=== PATIENT | female | born 2005 | race Two or more races ===

== ENCOUNTER 2024-02-23 13:42 | Emergency (ER) | payer MEDICAID, SELFPAY ==
[2024-02-23 13:46] VITALS: BP 137/89; PULSE 82; RESP 16; TEMP 36.7; O2SAT 97
--- NOTE | 2024-02-23 14:11 | ED.GENADUL_ITS ---
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 Please abstain from sexual intercourse until you get the results back. Will take approximately 2 to 3 days to have the results of the urine culture and blood test back. If there are any positive results we will call you. Follow up with primary care provider in 7-10 days. You may also follow-up with public health clinic or [facility]. Return to ED sooner if any vomiting, fever, abdominal pain. Referrals: [facility] [Provider Group] (To establish care) [facility] [Provider Group] (To establish care) [facility] [Provider Group] Primary Care Provider [Outside] HPI General Mode of arrival: ambulatory . Date/Time Provider Initiated Documentation: 02/23/24 13:51 . Limitations to Documentation: no limitations . Information obtained by: patient, RN notes reviewed and old records reviewed . HPI Narrative: 18-year-old female presents to the ER with chief complaint of possible STI exposure. She is requesting urine test and blood test. She reports that she is having unprotected sexual intercourse with multiple people. 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 Labs drawn and sent for HIV, RPR for syphilis and HSV, urine sent for gonorrhea chlamydia. Will discharge with instructions to follow-up with PCP and/or public health clinic as needed. Will discuss pelvic rest until results and practicing abstinence. Quality:SDOH Health Related Social Needs: No Data to Display PFSH All Active Problems (Updated 02/23/24 @ 15:01 by Hailey Swartz NP) Screening examination for STI (Acute) Social History Smoking/Tobacco Use Status: Never Smoking risk assessment performed?: Yes Alcohol Intake: never Drug use: Never Substance use type: does not use
[2024-02-24 11:46] LABS: Syphilis Serology (RPR) Negative (Negative)
[2024-02-24 12:34] LABS: Chlamydia Result Negative (Negative); GC Result Negative (Negative)
[2024-02-24 15:22] LABS: HSV 1 DNA Result Negative (Negative); HSV 2 DNA Result Negative (Negative)
== END 2024-02-23 15:07 | disposition home or self-care (01) ==
LOC: ER 15:30
PROVIDERS: Emergency Provider Registered Nurse Emergency
DX: Z20.2 Contact with and (suspected) exposure to infections with a predominantly sexual mode of transmission (principal)
CPT/HCPCS: 36415; 81025; 87491; 87529; 87591; 99283; 86592; 99282

== ENCOUNTER 2024-04-24 11:40 | Emergency (ER) | payer MEDICAID, SELFPAY ==
[2024-04-24 11:41] VITALS: BP 141/92; PULSE 87; RESP 16; TEMP 36.6; O2SAT 92
--- OUTSIDE RECORDS SUMMARY | 2024-04-24 12:44 | XMS_ITS | Encounter Summary ---
Author Organization [facility] Address [address] [place] [address] Care Team Providers Care It Infrastructure Project Manager Name Role Phone Unavailable Primary Care Provider Unavailabl e Encounter Details Date Type Department Care Team (Late st Contact Info) Description 02/23/2024 Lab Requisition [facility] Pathology & Laboratory Medicine - [facility] [address] [place] [address] Outr Resulting Lab, Provider Social History Tobacco Use Types Packs/Day Years Used Date Smoking Tobacco: Never Assessed Sex and Gender Information Value Date Recorded Sex Assigned at Not on file Gender Identity Not on file Sexual Orientation Not on file documented as of this encounter Plan of Treatment Not on file documented as of this encounter Procedures Procedure Name Priority Date/Time Associated Diagnosis Comments CHLAMYDIA/N. GONORRHOEAE AMPLIFIED NUCLEIC ACID Routine 02/23/2024 14:31 EDT documented in this encounter Results * CHLAMYDIA/N. GONORRHOEAE AMPLIFIED NUCLEIC ACID (02/23/2024 14:31 EDT) Neisseria gonorrhoeae Result Negative Negative 02/24/2024 12:29 EDT [facility] Chlamydia trachomatis Result Negative Negative 02/24/2024 12:29 EDT [facility] Urine URINE / Unknown 02/23/2024 1 4:31 EDT 02/23/2024 21:57 EDT Narrative [facility] - 02/24/2024 12:29 EDT A first catch urine specimen is acceptable for detection of Gonorrhea and Chlamydia, but might detect up to 10% fewer infections when compared with vaginal swab samples. Provider Outr Resulting Lab MICROBIOLOGY - GENERAL ORDERABLES [facility] [address] [place] [address] documented in this encounter Visit Diagnoses Not on filedocumented in this encounter
--- OUTSIDE RECORDS SUMMARY | 2024-04-24 12:44 | XMS_ITS | Clinical Summary ---
Author Organization [facility] Address [address] [place] [address] Care Team Providers Care Grievance Coordinator Name Role Phone Unavailable Primary Care Provider Unavailabl e Encounters Date Type Department Care Team Description 02/23/2024 Lab Requisition [facility] Pathology & Laboratory [facility] [address] [place] [address] Outr Resulting Lab, Provider 02/23/2024 Lab Requisition [facility] Pathology & Laboratory [facility] [address] [place] [address] Outr Resulting Lab, Provider from Last 3 Months Social History Tobacco Use Types Packs/Day Years Used Date Smoking Tobacco: Never Assessed Sex and Gender Information Value Date Recorded Sex Assigned at Not on file Gender Identity Not on file Sexual Orientation Not on file Plan of Treatment Health Maintenance Due Date Last Done Comments Hepatitis C Screen 2003 Hepatitis B Vaccine (1 of 3 - 19+ 3-dose series) 09/12 COVID-19 Vaccine ( season) 2023 Procedures Procedure Name Priority Date/Time Associated Diagnosis Comments CHLAMYDIA/N. GONORRHOEAE AMPLIFIED NUCLEIC ACID Routine 02/23/2024 14:31 EDT SYPHILIS SEROLOGY Routine 02/23/2024 14: 10 EDT HSV (HERPES SIMPLEX VIRUS) MOLECULAR DETECTION, PCR Routine 02/23/2024 14:10 EDT from Last 3 Months Results * CHLAMYDIA/N. GONORRHOEAE AMPLIFIED NUCLEIC ACID (02/23/2024 14:31 EDT) Neisseria gonorrhoeae Result Negative Negative 02/24/2024 12:29 EDT [facility] Chlamydia trachomatis Result Negative Negative 02/24/2024 12:29 EDT [facility] Urine URINE / Unknown 02/23/2024 1 4:31 EDT 02/23/2024 21:57 EDT Narrative [facility] - 02/24/2024 12:29 EDT A first catch urine specimen is acceptable for detection of Gonorrhea and Chlamydia, but might detect up to 10% fewer infections when compared with vaginal swab samples. Provider Outr Resulting Lab MICROBIOLOGY - GENERAL ORDERABLES Performing Organization Address City/[facility]/ZIP Co de Phone Number [facility] [address] [place] [address] * HSV (HERPES SIMPLEX VIRUS) MOLECULAR DETECTION, PCR (02/23/2024 14:10 EDT) Herpes Simplex Virus Molecular Detection 1, PCR Negative Negative 02/24/2024 15:17 EDT [facility] Herpes Simplex Virus Molecular Detection 2, PCR Negative Negative 02/24/2024 15:17 EDT [facility] Swab VAGINAL STRUCTURE / Unknown 02/23/2024 14:10 EDT 02/23/2024 21:57 EDT Provider Outr Resulting Lab MICROBIOLOGY - GENERAL ORDERABLES Performing Organization Address City/[facility]/ZIP Co de Phone Number [facility] [address], [place] [address] * SYPHILIS SEROLOGY (02/23/2024 14:10 EDT) Syphilis Serology Negative Negative 02/24/2024 11:41 EDT [facility] Blood VENOUS BLOOD / Unknown 02/23/2024 14:10 EDT 02/23/2024 21:44 EDT Provider Outr Resulting Lab IMMUNOLOGY A ND SEROLOGY ORDERABLES Performing Organization Address City/[facility]/ZIP Co de Phone Number [facility] [address], [place] [id number] from Last 3 Months
--- OUTSIDE RECORDS SUMMARY | 2024-04-24 12:44 | XMS_ITS | Encounter Summary ---
Author Organization [facility] Address [address] [place] [address] Care Team Providers Care Broadcast Producer Name Role Phone Unavailable Primary Care Provider Unavailabl e Encounter Details Date Type Department Care Team (Late st Contact Info) Description 02/23/[address] [facility] Pathology & Laboratory Medicine - [facility] [address] [place], [place] [address] Outr Resulting Lab, Provider Social History Tobacco [...] Procedure Name Priority Date/Time Associated Diagnosis Comments HSV (HERPES SIMPLEX VIRUS) MOLECULAR DETECTION, PCR Routine 02/23/2024 14:10 EDT SYPHILIS SEROLOGY Routine 02/23/2024 14: 10 EDT documented in this encounter Results * HSV (HERPES SIMPLEX VIRUS) MOLECULAR DETECTION, PCR (02/23/2024 14:10 EDT) Herpes Simplex Virus Molecular Detection 1, PCR Negative Negative 02/24/2024 15:17 EDT [facility] Herpes Simplex Virus Molecular Detection 2, PCR Negative Negative 02/24/2024 15:17 EDT [facility] Swab VAGINAL STRUCTURE / Unknown 02/23/2024 14:10 EDT 02/23/2024 21:57 EDT Provider Outr Resulting Lab MICROBIOLOGY - GENERAL ORDERABLES [facility] [address] [place], [place] [address] * SYPHILIS SEROLOGY (02/23/2024 14:10 EDT) Syphilis Serology Negative Negative 02/24/2024 11:41 EDT [facility] Blood VENOUS BLOOD / Unknown 02/23/2024 14:10 EDT 02/23/2024 21:44 EDT Provider Outr Resulting Lab IMMUNOLOGY A ND SEROLOGY ORDERABLES [facility] [address] [place] [address] documented in this encounter Visit Diagnoses Not on filedocumented in this encounter
--- OUTSIDE RECORDS SUMMARY | 2024-04-24 12:44 | XMS_ITS | Referral Summary ---
Author Organization [facility] Address [address] [place] [address] Care Team Providers Care Custody Assistant Name Role Phone Unavailable Primary Care Provider Unavailabl e Encounters Date Type Department Care Team Description 02/23/2024 Lab Requisition [facility] Pathology & Laboratory [facility] [address] [place] [address] Outr Resulting Lab, Provider 02/23/2024 Lab Requisition [facility] Pathology & Laboratory [facility] [address] [place] [address] Outr Resulting Lab, Provider from Last 3 Months Social History Tobacco Use Types Packs/Day Years Used Date Smoking Tobacco: Never Assessed Sex and Gender Information Value Date Recorded Sex Assigned at Not on file Gender Identity Not on file Sexual Orientation Not on file Plan of Treatment Not on file Procedures Procedure Name Priority Date/Time Associated Diagnosis Comments CHLAMYDIA/N. GONORRHOEAE AMPLIFIED NUCLEIC ACID Routine 02/23/2024 14:31 EDT SYPHILIS SEROLOGY Routine 02/23/2024 14: 10 EDT HSV (HERPES SIMPLEX VIRUS) MOLECULAR DETECTION, PCR Routine 02/23/2024 14:10 EDT from Last 3 Months Results * CHLAMYDIA/N. GONORRHOEAE AMPLIFIED NUCLEIC ACID (02/23/2024 14:31 EDT) Neisseria gonorrhoeae Result Negative Negative 02/24/2024 12:29 EDT [facility] Chlamydia trachomatis Result Negative Negative 02/24/2024 12:29 EDT [facility] Urine URINE / Unknown 02/23/2024 1 4:31 EDT 02/23/2024 21:57 EDT Narrative [facility] - 02/24/2024 12:29 EDT A first catch urine specimen is acceptable for detection of Gonorrhea and Chlamydia, but might detect up to 10% fewer infections when compared with vaginal swab samples. Provider Outr Resulting Lab MICROBIOLOGY - GENERAL ORDERABLES [facility] [address] [place], [place] [phone] * HSV (HERPES SIMPLEX VIRUS) MOLECULAR DETECTION, PCR (02/23/2024 14:10 EDT) Herpes Simplex Virus Molecular Detection 1, PCR Negative Negative 02/24/2024 15:17 EDT [facility] Herpes Simplex Virus Molecular Detection 2, PCR Negative Negative 02/24/2024 15:17 EDT [facility] Swab VAGINAL STRUCTURE / Unknown 02/23/2024 14:10 EDT 02/23/2024 21:57 EDT Provider Outr Resulting Lab MICROBIOLOGY - GENERAL ORDERABLES Performing Organization Address City/[facility]/ZIP Co de Phone Number [facility] [address] [place], [place] [phone] * SYPHILIS SEROLOGY (02/23/2024 14:10 EDT) Syphilis Serology Negative Negative 02/24/2024 11:41 EDT [facility] Blood VENOUS BLOOD / Unknown 02/23/2024 14:10 EDT 02/23/2024 21:44 EDT Provider Outr Resulting Lab IMMUNOLOGY A ND SEROLOGY ORDERABLES [facility] [address] [place], [place] [phone] from Last 3 Months
--- NOTE | 2024-04-24 12:48 | W.ED.GENAD ---
Discharge Plan Disposition Patient Disposition: Home Condition: Good Discharge Details Clinical Impression: Medication refill, Possible exposure to STD Primary Care Provider: Unknown,Unknown ED Provider: Heavenly Ley Home Meds and New Rx's Prescriptions: New valacyclovir 1 gram tablet 1,000 mg PO DAILY PRNQty: 20 0RF Continued valacyclovir 1 gram tablet 1,000 mg PO DAILY PRN Discharge Instructions Instructions: Sexually Transmitted Infections ED Additional Instructions: Your refill of valacyclovir has been sent to your pharmacy. Please take this medication as prescribed. Please begin a vitamin as you are considering . Please call REIMBURSEMENT COUNSELOR to schedule follow-up appointment. Numbers listed below. They will be able to screen you for all STDs as well as discuss any care and perform Pap smear for cancer screening. If you develop any vaginal discharge, rash, pain with urination or other new/worsening symptom please seek care urgently once again. Referrals: Cynthia Man MD [ [facility] STAFF PHYSICIAN] - Discharge Data Discharge Date/Time-TO BE ENTERED AT DEPARTURE: 04/24/24 12:59 HPI General Date/Time Provider Initiated Documentation: 04/24/24 11:44. Limitations to Documentation: no limitations. Information obtained by: patient and RN notes reviewed. History of Present Illness 18 year old F presents to the emergency department with the chief complaint of Ran out of of valacyclovir, possible STD exposure, Patient notes no other symptoms.. Related Data Home Medications ?Medication ?Instructions ?Recorded ?Confirmed valacyclovir 1 gram tablet 1,000 mg PO DAILY PRN 02/23/24 04/24/24 valacyclovir 1 gram tablet 1,000 mg PO DAILY PRN #20 tabs 04/24/24 Previous Rx's ?Medication ?Instructions ?Recorded valacyclovir 1 gram tablet 1,000 mg PO DAILY PRN #20 tabs 04/24/24 Allergies Allergy/AdvReac Type Severity Reaction Status Date / Time fentanyl Allergy Unknown Unknown Verified 04/24/24 11:47 oxycodone AdvReac Unknown Other (See Verified 04/24/24 11:47 Comment) General Stated Complaint: RX Refill JULIUS: 5 Review of Systems Constitutional Constitutional: Reports as per HPI, Denies chills, Denies fever(s) and Denies headache(s) ENT Ears, Nose, Mouth, and Throat: Denies headache(s) Cardiovascular Cardiovascular: Reports as per HPI, Denies chest pain and Denies dyspnea Respiratory Respiratory: Reports as per HPI, Denies cough and Denies dyspnea Neurologic Neurologic: Denies headache(s) Exam Const General: cooperative, healthy appearing, comfortable and no acute distress Nutritional Appearance: well nourished and overweight Orientation: alert and awake Resp Effort & Inspection: normal respiratory effort, able to speak in complete sentences and no respiratory distress Cardio Rate: regular rate Rhythm: regular rhythm Skin General skin exam: no rashes or lesions noted Neuro General: patient alert and patient awake Cognition: normal cognition Speech: speech normal Gait: normal gait Course Vital Signs Vital signs: Vital Signs Temperature 36.6 C 04/24/24 11:41 Pulse 87 04/24/24 11:41 Respiratory Rate 16 04/24/24 11:41 Blood Pressure 141/92 H 04/24/24 11:41 Pulse Oximetry 92 04/24/24 11:41 Temperature 36.6 C 04/24/24 11:41 Temperature Source Temporal Artery Scan 04/24/24 11:41 Pulse 87 04/24/24 11:41 Respiratory Rate 16 04/24/24 11:41 Respiratory Effort Normal 04/24/24 11:45 Blood Pressure 141/92 H 04/24/24 11:41 Blood Pressure Position Sitting 04/24/24 11:41 Pulse Oximetry 92 04/24/24 11:41 Oxygen Delivery Method Room Air 04/24/24 11:41 Oxygen Flow Rate 0 04/24/24 11:41 Pain Level 0 04/24/24 11:41 Medical Decision Making Patient is a pleasant 18-year-old female with past medical history significant for oral herpes, presenting today requesting refill of her valacyclovir. She reports that this has not been filled in some time, recently developed a cold sore. She also was requesting STD testing. However, patient is also not been seen by an REIMBURSEMENT COUNSELOR and has not had Pap smear in the past. She reports that she is with a new sexual partner, second of her lifetime, and does not use any barrier protection as she is allergic to condoms. She reports that he is not having any actual symptoms at this time. No discharge, itching, burning with urination, abdominal pain, fever/chills. She feels that this is more out of abundance of caution that she should be checked. Patient I discussed different testing methods. She has not had a Pap smear and would likely benefit from continued gynecological care, particularly as the patient is considering getting , I encouraged her to follow-up with REIMBURSEMENT COUNSELOR. I did offer to do a pelvic exam here today but she would prefer to have this completed at 1 time and have all of the testing completed by 1 provider. Will defer this to REIMBURSEMENT COUNSELOR as the patient is not acutely having any symptoms at this time. Will place referral to REIMBURSEMENT COUNSELOR and also give the patient phone number, she will call in the morning to schedule appointment. Will refill her valacyclovir. I encouraged that if she is considering , she began taking a vitamin. I encouraged her to get nonlatex condoms which may be not irritating to her. Return precautions were discussed. All of her questions and concerns were addressed and patient is agreement this plan. Quality:SDOH Health Related Social Needs: No Data to Display PFSH All Active Problems (Updated 04/24/24 @ 12:51 by KENDRA Tim) Possible exposure to STD (Acute) Medication refill (Acute) Social History Smoking/Tobacco Use Status: Never Smoking risk assessment performed?: Yes Alcohol Intake: never Drug use: Never Substance use type: does not use
[2024-04-24 12:58] VITALS: BP 141/92; PULSE 87; RESP 16; TEMP 36.6; O2SAT 92
== END 2024-04-24 12:59 | disposition home or self-care (01) ==
PROVIDERS: Emergency Provider Physician Assistant
DX: Z20.2 Contact with and (suspected) exposure to infections with a predominantly sexual mode of transmission (principal); Z76.0 Encounter for issue of repeat prescription
CPT/HCPCS: 99283

== ENCOUNTER 2024-04-25 13:56 | Outpatient (CLI) | payer MEDICAID, SELFPAY ==
[2024-04-26 09:44] LABS: HIV-1/2 Ag & Ab Screen Negative (Negative)
[2024-04-26 10:23] LABS: Syphilis Serology (RPR) Negative (Negative)
[2024-04-26 11:15] LABS: Hepatitis A Antibody IgM Negative (Negative); Hepatitis B Core Antibody Negative (Negative); Hepatitis B surface Ag Negative (Negative); Hepatitis C Ab w Rflx HCV PCR Negative (Negative)
== END 2024-04-25 13:57 | disposition home or self-care (01) ==
LOC: LBO 13:57
PROVIDERS: Visit Provider Obstetrics & Gynecology
DX: Z20.2 Contact with and (suspected) exposure to infections with a predominantly sexual mode of transmission (principal)
CPT/HCPCS: 36415; 86704; 86709; 86803; 87340; 87389; 86592

== ENCOUNTER 2024-04-25 14:20 | Outpatient (REF) | payer MEDICAID, SELFPAY ==
[2024-04-26 11:58] LABS: Chlamydia Result Negative (Negative); GC Result Negative (Negative)
== END 2024-04-25 14:21 | disposition home or self-care (01) ==
LOC: LBN 14:20
PROVIDERS: Visit Provider Obstetrics & Gynecology
DX: Z20.2 Contact with and (suspected) exposure to infections with a predominantly sexual mode of transmission (principal)
CPT/HCPCS: 87491; 87591

== ENCOUNTER 2024-06-22 11:37 | Emergency (ER) | payer MEDICAID, SELFPAY ==
[2024-06-22 11:47] VITALS: BP 132/79; PULSE 79; RESP 15; TEMP 36.4; O2SAT 97
[2024-06-22 11:52] VITALS: BP 132/79; PULSE 79; RESP 15; TEMP 36.4; O2SAT 97
--- NOTE | 2024-06-22 12:15 | DI.RAD_ITS ---
Exam(s) XR CHEST 2V PA LATERAL EXAM: XR CHEST 2V PA LATERAL CLINICAL HISTORY: shortness of breath TECHNIQUE: 2D digital imaging was performed. Two views. COMPARISON: No exams were available for comparison FINDINGS: HEART: Normal size. Aorta: Not dilated. PULMONARY VASCULATURE: Normal. MEDIASTINUM: Unremarkable. LUNGS: Mildly hyperinflated. Clear. PLEURAL SPACE: No pleural effusion or pneumothorax. BONE:Unremarkable for age. SOFT TISSUES: Unremarkable. IMPRESSION: No acute abnormality. DATA REPOSITORY: RADIATION DOSE DELIVERED:
[2024-06-22 12:31] LABS: Bilirubin Negative (Negative); Blood Negative (Negative); Clarity Clear (Clear); Glucose Negative (Negative); Ketones Negative (Negative); Leukocyte Esterase Negative (Negative); Nitrite Negative (Negative); Specific Gravity 1.025 (1.005-1.025); Urobilinogen 0.2 mg/dL (Up to 0.2); pH 6.5 (5-8)
[2024-06-22 12:45] LABS: Abs Immature Grans 0.06 10^3/uL (0.0-0.06); Absolute Basophil Count 0.04 10^3/uL (0.0-0.2); Absolute Eosinophil Count 0.05 10^3/uL (0.0-0.7); Absolute Lymphocyte Count 2.44 10^3/uL (1.2-3.4); Absolute Monocyte Count 0.49 10^3/uL (0.1-0.8); Absolute Neutrophil Count 6.17 10^3/uL (1.2-6.7); Basophils % 0.4 %; Eosinophils % 0.5 %; HCT 53.2 % (36.0-46.0); HGB 18.2 g/dL (11.2-15.7); Immature Grans % 0.6 %; Lymphocytes % 26.4 %; MCH 31.6 pg (27.0-33.0); MCHC 34.2 % (32.0-36.0); MCV 92 fL (80-95); MPV 10.3 fL (8.0-11.0); Monocytes % 5.3 %; Neutrophils % 66.8 %; Platelet Count 192 10^3/uL (130-400); RBC 5.76 10^6/uL (3.93-5.22); RDW 13.3 % (11.7-14.6); RDW-SD 45.5 fL; WBC 9.25 10^3/uL (4.4-10.8)
[2024-06-22 13:26] LABS: ALT 17 U/L (14-59); AST 13 U/L (15-37); Alkaline Phosphatase 88 U/L (46-116); Anion Gap 11.9 mmol/L (3-11); BUN 9 mg/dL (7-18); Bilirubin, Total 0.62 mg/dL (0.2-1.0); CO2 25.1 mmol/L (21.0-32.0); CREATININE 0.6 mg/dL (0.55-1.02); Calcium 8.9 mg/dL (8.5-10.1); Chloride 104 mmol/L (98-107); Glucose 91 mg/dL (74-106); Magnesium 1.4 mg/dL (1.8-2.4); Potassium 3.7 mmol/L (3.5-5.1); Sodium 141 mmol/L (136-145); TSH (W/Ref FT4) 1.43 uIU/mL (0.36-3.74); Total Protein 8.4 g/dL (6.4-8.2)
[2024-06-22 13:36] VITALS: BP 141/77; PULSE 64; RESP 16; O2SAT 96
[2024-06-22 13:37] VITALS: BP 141/77; PULSE 62; O2SAT 96
--- NOTE | 2024-06-22 14:10 | ED.GENADUL_ITS ---
Discharge Plan Disposition Patient Disposition: Home Condition: Stable Discharge Details Clinical Impression: Alcoholism, Hypomagnesemia, Fatigue Primary Care Provider: Unknown,Unknown ED Provider: Yamini Lynn Home Meds and New Rx's Prescriptions: New thiamine HCl (vitamin B1) 250 mg tablet 250 mg PO DAILY Qty: 30 0RF magnesium 250 mg tablet 250 mg PO DAILY Qty: 14 0RF thiamine HCl (vitamin B1) 100 mg tablet 100 mg PO DAILY Qty: 30 0RF Continued valacyclovir 1 gram tablet 1,000 mg PO DAILY PRNQty: 20 0RF valacyclovir 1 gram tablet 1,000 mg PO DAILY PRN Discharge Instructions Instructions: Fatigue (DC), Alcohol Use Disorder (DC), Hypomagnesemia Additional Instructions: I placed on the list to establish with a primary care physician, this is very important Regular fluid and fluid, take the thiamine and magnesium daily Recommend working on alcohol sobriety by cutting down by 1 drink daily, never stop drinking alcohol suddenly as you can Please return earlier should you have new or worsening complaints Referrals: [facility] [Outside] - 1 day Discharge Data Discharge Date/Time-TO BE ENTERED AT DEPARTURE: 06/22/24 15:34 HPI General Date/Time Provider Initiated Documentation: 06/22/24 12:20 . HPI Narrative: This 18-year-old female with history of alcoholism over the course of the past year presents with report of fatigue. Patient states that she has been drinking approximately 1/5 of vodka daily for the past year she is able to afford. She denies chance of and had a recent STD workup in the outpatient setting. She smokes marijuana as well. Denies any additional illicit drug use. Denies any rashes or lesions. Does not have a doctor currently. Denies any cough or chest pain or shortness of breath. Denies fever or chills. Denies any current abdominal pain nausea or vomiting. Related Data Home Medications ?Medication ?Instructions ?Recorded ?Confirmed valacyclovir 1 gram tablet 1,000 mg PO DAILY PRN 02/23/24 04/24/24 valacyclovir 1 gram tablet 1,000 mg PO DAILY PRN #20 tabs 04/24/24 magnesium 250 mg tablet 250 mg PO DAILY #14 tabs 06/22/24 thiamine HCl (vitamin B1) 250 mg 250 mg PO DAILY #30 tabs 12/04/24 tablet thiamine HCl (vitamin B1) 100 mg 100 mg PO DAILY #30 tabs 06/23/24 tablet Previous Rx's ?Medication ?Instructions ?Recorded valacyclovir 1 gram tablet 1,000 mg PO DAILY PRN #20 tabs 04/24/24 magnesium 250 mg tablet 250 mg PO DAILY #14 tabs 06/22/24 thiamine HCl (vitamin B1) 250 mg 250 mg PO DAILY #30 tabs 06/22/24 tablet thiamine HCl (vitamin B1) 100 mg 100 mg PO DAILY #30 tabs 06/23/24 tablet Allergies Allergy/AdvReac Type Severity Reaction Status Date / Time fentanyl Allergy Unknown Unknown Verified 04/25/24 12:55 oxycodone AdvReac Unknown Other (See Verified 04/25/24 12:55 Comment) General Stated Complaint: Abd Prob JULIUS: 3 Exam Narrative Exam Narrative: 8-year-old female presenting in no acute distress, alert and oriented x 4, does not appear to get a new importance of alcohol, no scleral icterus, pupils equal round reactive to light and accommodation, lungs clear to auscultation bilaterally, cardiac rate rhythm regular, no abdominal tenderness, no rebound or guarding, no CVA tenderness, alert and oriented x 4, no calf swelling or tenderness Course Vital Signs Vital signs: Vital Signs Temperature 36.4 C L 06/22/24 11:47 Pulse 79 06/22/24 11:47 Respiratory Rate 15 06/22/24 11:47 Blood Pressure 132/79 06/22/24 11:47 Pulse Oximetry 97 06/22/24 11:47 Temperature 36.4 C L 06/22/24 11:52 Pulse 62 06/22/24 13:37 Respiratory Rate 16 06/22/24 13:36 Respiratory Effort Normal 06/22/24 11:52 Blood Pressure 141/77 H 06/22/24 13:37 Blood Pressure Mean 85 06/22/24 13:37 Blood Pressure Position Sitting 06/22/24 11:52 Pulse Oximetry 96 06/22/24 13:37 Oxygen Delivery Method Room Air 06/22/24 11:52 Oxygen Flow Rate 0 06/22/24 11:47 Lab/Test Results Lab/Test Results: Laboratory Tests Range/Units 06/22/24 06/22/24 06/22/24 12:11 12:39 12:39 WBC (4.4-10.8) 10^3/uL 9.25 RBC (3.93-5.22) 10^6/uL 5.76 H Hgb (11.2-15.7) g/dL 18.2 H Hct (36.0-46.0) % 53.2 H MCV (80-95) fL 92 MCH (27.0-33.0) pg 31.6 MCHC (32.0-36.0) % 34.2 RDW (11.7-14.6) % 13.3 Plt Count (130-400) 10^3/uL 192 MPV (8.0-11.0) fL 10.3 Immature Gran % % 0.6 Neutrophils % % 66.8 Lymphocytes % % 26.4 Monocytes % % 5.3 Eosinophils % % 0.5 Basophils % % 0.4 Nucleated RBC % (0.0-0.3) % 0.0 Absolute Neutrophils (1.2-6.7) 10^3/uL 6.17 Absolute Lymphocytes (1.2-3.4) 10^3/uL 2.44 Absolute Monocytes (0.1-0.8) 10^3/uL 0.49 Absolute Eosinophils (0.0-0.7) 10^3/uL 0.05 Absolute Basophils (0.0-0.2) 10^3/uL 0.04 Sodium (136-145) mmol/L 141 Potassium (3.5-5.1) mmol/L 3.7 Chloride (98-107) mmol/L 104 Carbon Dioxide (21.0-32.0) mmol/L 25.1 Anion Gap (3-11) mmol/L 11.9 H BUN (7-18) mg/dL 9 Creatinine (0.55-1.02) mg/dL 0.6 Est GFR (CKD-EPI 2020) (mL/min/1.73m2) 131.70 Glucose (74-106) mg/dL 91 Calcium (8.5-10.1) mg/dL 8.9 Magnesium (1.8-2.4) mg/dL 1.4 L Cancelled Total Bilirubin (0.2-1.0) mg/dL 0.62 AST (15-37) U/L 13 L ALT (14-59) U/L 17 Alkaline Phosphatase (46-116) U/L 88 Total Protein (6.4-8.2) g/dL 8.4 H Albumin (3.4-5.0) g/dL 4.0 TSH (0.36-3.74) uIU/mL 1.43 Urine Color (Yellow) Yellow Urine Clarity (Clear) Clear Urine pH (5-8) 6.5 Ur Specific [place] (1.005-1.025) 1.025 Urine Protein (Neg-Trace) mg/dL Negative Urine Ketones (Negative) mg/dL Negative Urine Blood (Negative) Negative Urine Nitrite (Negative) Negative Urine Bilirubin (Negative) Negative Urine Urobilinogen (Up to 0.2) mg/dL 0.2 Ur Leukocyte Esterase (Negative) Negative Urine Glucose (Negative) mg/dL Negative POC Urine Test Start: 06/22/24 12:16 Freq: Status: Complete Protocol: Document 06/22/24 12:16 KONRAD (Rec: 06/22/24 12:16 KONRAD [id number]) Test(Urine)-POC POC- Test(urine) Negative POC- Test(urine) Negative Medical Decision Making 18-year-old female with relatively recent development of alcoholism over the past year has been drinking regularly, for that [facility] was called for intervention. Patient was evaluated for fatigue standpoint all labs look okay aside from her magnesium which is quite low. Patient refuses magnesium through her IV at this time. She will take oral magnesium and asked that we remove her IV if she would like to be discharged home. She says that if she chooses to engage in sobriety she will contact [facility]. At this time I do not feel patient is a good candidate for Librium given that she does not have a support system locally. I have referred her to primary care physician as she li ves in [place] and does not currently have a primary care physician, given during recovery has given her phone number to call for help, patient states that patient not quite ready to go to a meeting . Negative test, magnesium supplementation for home and thiamine supplement provided. Return precautions reviewed and patient expressed understanding. Quality:SDOH Health Related Social Needs: No Data to Display PFSH All Active Problems (Updated 06/22/24 @ 14:07 by KENDRA Del Toro) Fatigue (Acute) Hypomagnesemia (Acute) Alcoholism (Acute) Social History Smoking/Tobacco Use Status: Never Smoking risk assessment performed?: Yes Alcohol Intake: never Drug use: Never Substance use type: does not use PAWSS Have you Been Recently Intoxicated or Drunk Within the Last 30 days?: Yes Have you Ever Experienced Previous Episodes of Alcohol Withdrawal?: No Have you ever Experienced Withdrawal Seizures?: No Have you ever Experienced Delirium Tremens(DT)s?: No Have you ever undergone Alcohol Rehabilitation Treatment (i.e, inpt ot outpatient treatment programs)?: No Have you ever Experienced Blackouts?: Yes Have you ever Combined Alcohol with other Downers within the last 90 days?: No Have you ever Combined Alcohol with any other Substance of Abuse during the last 90 days?: No Positive Blood Alcohol level on Presentation? [PCS.BAL]: No Evidence of Increased Autonomic Activity (i.e. HR>120, tremor, sweating, agitation, nausea)?: No Result: 2
[2024-06-22] MEDS: Magnesium Oxide 400 MG TAB 800 MG PO (14:15)
== END 2024-06-22 15:34 | disposition home or self-care (01) ==
PROVIDERS: Emergency Provider Physician Assistant
DX: F10.20 Alcohol dependence, uncomplicated (principal); E83.42 Hypomagnesemia; R53.83 Other fatigue
CPT/HCPCS: 80053; 81025; 82962; 99284; 71046; 81003; 83735; 84443; 85025

== ENCOUNTER 2024-10-11 13:57 | Emergency (ER) | payer MEDICAID, SELFPAY ==
[2024-10-11 14:03] VITALS: BP 141/79; PULSE 92; RESP 20; TEMP 36.8; O2SAT 91
[2024-10-11 14:06] VITALS: BP 141/79; PULSE 92; RESP 20; TEMP 36.8; O2SAT 91
--- NOTE | 2024-10-11 14:24 | ED.GENADUL_ITS ---
Discharge Plan Disposition Patient Disposition: Home Condition: Stable Discharge Details Clinical Impression: URI (upper respiratory infection), Cough Primary Care Provider: Unknown,Unknown ED Provider: Felipe Augustin Home Meds and New Rx's Prescriptions: New promethazine 6.25 mg/5 mL syrup 12.5 mg PO Q6H PRN (Reason: cough) Qty: 120 0RF prednisone 20 mg tablet 40 mg PO DAILY 4 Days Qty: 8 0RF benzonatate 100 mg capsule 100 mg PO TID PRN (Reason: cough) Qty: 30 0RF No Action valacyclovir 1 gram tablet 1,000 mg PO DAILY PRNQty: 20 0RF magnesium 250 mg tablet 250 mg PO DAILY Qty: 14 0RF thiamine HCl (vitamin B1) 100 mg tablet 100 mg PO DAILY Qty: 30 0RF Discharge Instructions Instructions: Upper Respiratory Infection ED Additional Instructions: USE THE INHALER WITH SPACER 2 PUFFS EVERY 4 HOURS FOR THE NEXT DAY, THEN SPACE OUT TO 6 HOURS FOR 24 HOURS THEN SPACE TO NEEDED START STEROIDS TOMORROW, FIRST DOSE GIVEN IN ED XRAY DOESN'T SHOW PNUEMONIA ADDITIONAL COUGH MEDICINES SENT TO [facility]ARM[facility] Stand Alone Forms: Work Release Discharge Data Discharge Date/Time-TO BE ENTERED AT DEPARTURE: 10/11/24 15:03 HPI General Date/Time Provider Initiated Documentation: 10/11/24 14:01 . Limitations to Documentation: no limitations . Information obtained by: patient . HPI Narrative: 19y F without significant PMH, daily smoker, presents for evaluation of cough and URI symptoms. Patient reports onset of symptoms during a recent trip to [facility]. reports onset of symptoms on day 2 of trip, which was about 3 weeks ago. Symptoms started with a cold sore and she took valtrex. She reports cough, non productive. No fever. Never used inhalers. Related Data Home Medications ?Medication ?Instructions ?Recorded ?Confirmed valacyclovir 1 gram tablet 1,000 mg PO DAILY PRN #20 tabs 04/24/24 10/11/24 magnesium 250 mg tablet 250 mg PO DAILY #14 tabs 06/22/24 10/11/24 thiamine HCl (vitamin B1) 100 mg 100 mg PO DAILY #30 tabs 06/23/24 10/11/24 tablet benzonatate 100 mg capsule 100 mg PO TID PRN cough #30 caps 10/11/24 10/11/24 prednisone 20 mg tablet 40 mg (2 x 20 mg) PO DAILY 4 days 10/11/24 10/11/24 #8 tabs promethazine 6.25 mg/5 mL oral 12.5 mg (10 mL) PO Q6H PRN cough 10/11/24 10/11/24 syrup #120 mL Previous Rx's ?Medication ?Instructions ?Recorded valacyclovir 1 gram tablet 1,000 mg PO DAILY PRN #20 tabs 04/24/24 magnesium 250 mg tablet 250 mg PO DAILY #14 tabs 06/22/24 thiamine HCl (vitamin B1) 100 mg 100 mg PO DAILY #30 tabs 06/23/24 tablet benzonatate 100 mg capsule 100 mg PO TID PRN cough #30 caps 10/11/24 prednisone 20 mg tablet 40 mg (2 x 20 mg) PO DAILY 4 days 10/11/24 #8 tabs promethazine 6.25 mg/5 mL oral 12.5 mg (10 mL) PO Q6H PRN cough 10/11/24 syrup #120 mL Allergies Allergy/AdvReac Type Severity Reaction Status Date / Time fentanyl Allergy Unknown Unknown Verified 10/11/24 14:07 shellfish derived Allergy Anaphylaxis Verified 10/11/24 14:07 oxycodone AdvReac Unknown Other (See Verified 10/11/24 14:07 Comment) General Stated Complaint: RespSymp JULIUS: 3 Exam Narrative Exam Narrative: Review of Systems: All systems reviewed & are unremarkable except as noted in HPI and below Well-developed, no acute distress NCAT PERRL, normal conjunctiva RRR Expiratory wheezing Course Vital Signs Vital signs: Vital Signs Temperature 36.8 C 10/11/24 14:03 Pulse 92 H 10/11/24 14:03 Respiratory Rate 20 10/11/24 14:03 Blood Pressure 141/79 H 10/11/24 14:03 Pulse Oximetry 91 L 10/11/24 14:03 Temperature 36.8 C 10/11/24 14:06 Pulse 92 H 10/11/24 14:06 Respiratory Rate 20 10/11/24 14:06 Blood Pressure 141/79 H 10/11/24 14:06 Pulse Oximetry 91 L 10/11/24 14:06 Medical Decision Making emergent evaluation of URI symptoms. Initial DDX includes pneumonia, bronchitis, viral illness. Given her smoking history and will wheezing on examination, steroids and bronchodilators given. She was discharged with a course of steroids. Chest x-ray was obtained and there is no focal consolidation concerning for pneumonia given her lack of fever I do not feel that antibiotics are indicated. I did provide additional prescription medications to help with cough. Recommend close follow-up with PCP. Quality:SDOH Health Related Social Needs: No Data to Display PFSH All Active Problems Cough (Acute) URI (upper respiratory infection) (Acute) Social History Smoking/Tobacco Use Status: Current every day Tobacco Type: cigarettes Smoking risk assessment performed?: Yes Alcohol Intake: current Alcohol Intake frequency: 0-2 drinks per day Drug use: Daily Substance use type: marijuana Do you feel safe at home: Yes Do you feel safe in your relationship?: Yes Female Reproductive History Menstrual Age of Menarche: 13 PAWSS Have you Been Recently Intoxicated or Drunk Within the Last 30 days?: No Have you Ever Experienced Previous Episodes of Alcohol Withdrawal?: No Have you ever Experienced Withdrawal Seizures?: No Have you ever Experienced Delirium Tremens(DT)s?: No Have you ever undergone Alcohol Rehabilitation Treatment (i.e, inpt ot outpat ient treatment programs)?: Yes Have you ever Experienced Blackouts?: No Have you ever Combined Alcohol with other Downers within the last 90 days?: No Have you ever Combined Alcohol with any other Substance of Abuse during the last 90 days?: No Positive Blood Alcohol level on Presentation? [PCS.BAL]: No Evidence of Increased Autonomic Activity (i.e. HR>120, tremor, sweating, agitation, nausea)?: No Result: 1
--- NOTE | 2024-10-11 14:37 | DI.RAD_ITS ---
Exam(s) XR CHEST 2V PA LATERAL EXAM: XR CHEST 2V PA LATERAL CLINICAL HISTORY: cough TECHNIQUE: 2D digital imaging was performed. Two views. COMPARISON: No exams were available for comparison FINDINGS: HEART: Normal size. Aorta: Not dilated. PULMONARY VASCULATURE: Normal. MEDIASTINUM: Unremarkable. LUNGS: Clear. PLEURAL SPACE: No pleural effusion or pneumothorax. BONE:Unremarkable for age. SOFT TISSUES: Unremarkable. IMPRESSION: No acute abnormality. DATA REPOSITORY: RADIATION DOSE DELIVERED:
[2024-10-11] MEDS: predniSONE 20 MG TAB 60 MG PO (14:42)
[2024-10-11] MEDS: Albuterol HFA 8 GM 60 PUFF INH IH (14:42)
[2024-10-11 15:03] VITALS: BP 141/79; PULSE 92; RESP 20; TEMP 36.8; O2SAT 91
== END 2024-10-11 15:03 | disposition home or self-care (01) ==
PROVIDERS: Emergency Provider Emergency Medicine
DX: J06.9 Acute upper respiratory infection, unspecified (principal); R05.9 Cough, unspecified; F17.210 Nicotine dependence, cigarettes, uncomplicated
CPT/HCPCS: 81025; 87426; 99284; 71046; J7512

== ENCOUNTER 2024-10-11 14:25 | Outpatient (REF) | payer MEDICAID, SELFPAY ==
[2024-10-12 13:04] LABS: Chlamydia Result Negative (Negative); GC Result Negative (Negative)
== END 2024-10-11 14:26 | disposition home or self-care (01) ==
LOC: LBN 14:25
PROVIDERS: Visit Provider Obstetrics & Gynecology
DX: R87.610 Atypical squamous cells of undetermined significance on cytologic smear of cervix (ASC-US); Z12.4 Encounter for screening for malignant neoplasm of cervix
CPT/HCPCS: 87491; 87591; 88142; 87480; 87510; 87624; 87660

== ENCOUNTER 2025-03-29 15:40 | Outpatient (REF) | payer MEDICAID, SELFPAY ==
[2025-03-30 11:18] LABS: Chlamydia Result Negative (Negative); GC Result Negative (Negative)
== END 2025-03-29 15:41 | disposition home or self-care (01) ==
LOC: LBN 15:40
PROVIDERS: PCP Obstetrics & Gynecology Gynecology; Visit Provider Obstetrics & Gynecology
DX: Z70.8 Other sex counseling (principal)
CPT/HCPCS: 87491; 87591

== ENCOUNTER 2025-03-29 16:43 | Outpatient (CLI) | payer MEDICAID, SELFPAY ==
[2025-03-29 15:06] LABS: HCT 48.2 % (36.0-46.0); HGB 16.7 g/dL (11.2-15.7); MCH 31.7 pg (27.0-33.0); MCHC 34.6 % (32.0-36.0); MCV 92 fL (80-95); MPV 10.5 fL (8.0-11.0); Platelet Count 186 10^3/uL (130-400); RBC 5.27 10^6/uL (3.93-5.22); RDW 12.6 % (11.7-14.6); RDW-SD 42.7 fL; WBC 9.26 10^3/uL (4.4-10.8)
[2025-03-29 15:23] LABS: INR 1.0 (0.9-1.1); PTT Activated 25.9 sec (20.6-30.2); Prothrombin Time 9.9 sec (9.1-11.1)
[2025-03-29 15:41] LABS: Hemoglobin A1C 4.9 % (<5.7)
[2025-03-29 16:13] LABS: Anion Gap 8.7 mmol/L (3-11); BUN 9 mg/dL (7-18); CO2 25.3 mmol/L (21.0-32.0); Calcium 9.1 mg/dL (8.5-10.1); Calculated LDL 103 mg/dL (<100); Chloride 103 mmol/L (98-107); Cholesterol 177 mg/dL (<200); Estimated GFR 136.76 (mL/min/1.73m2); Glucose 91 mg/dL (74-106); HDL Cholesterol 66 mg/dL (>or=50); Potassium 3.8 mmol/L (3.5-5.1); Sodium 137 mmol/L (136-145); TSH (W/Ref FT4) 2.02 uIU/mL (0.36-3.74); Triglyceride 43 mg/dL (<150)
[2025-03-30 10:11] LABS: Syphilis Serology (RPR) Negative (Negative)
[2025-03-30 10:18] LABS: HIV-1/2 Ag & Ab Screen Negative (Negative)
[2025-03-30 10:29] LABS: Hepatitis C Ab w Rflx HCV PCR Negative (Negative)
== END 2025-03-29 16:44 | disposition home or self-care (01) ==
LOC: LBO 16:44
PROVIDERS: PCP Obstetrics & Gynecology Gynecology; Visit Provider Obstetrics & Gynecology
DX: Z01.419 Encounter for gynecological examination (general) (routine) without abnormal findings (principal); Z31.9 Encounter for procreative management, unspecified; E66.811 Obesity, class 1; Z86.718 Personal history of other venous thrombosis and embolism; Z11.4 Encounter for screening for human immunodeficiency virus [HIV]; Z13.1 Encounter for screening for diabetes mellitus; Z11.59 Encounter for screening for other viral diseases; Z13.6 Encounter for screening for cardiovascular disorders; Z3A.28 28 weeks gestation of pregnancy
CPT/HCPCS: 36415; 80048; 80061; 85027; 86803; 87389; 83036; 84443; 85610; 85730; 86592

== ENCOUNTER 2025-03-31 13:23 | Emergency (ER) | payer MEDICAID, SELFPAY ==
[2025-03-31 13:37] VITALS: BP 130/92; PULSE 86; RESP 16; TEMP 37.1; O2SAT 98
--- NOTE | 2025-03-31 15:25 | ED.GENADUL_ITS ---
Discharge Plan Discharge Details Chief Complaint: GenMedical Primary Care Provider: Cynthia Man ED Provider: Jose Guadalupe Winchester Home Meds and New Rx's Prescriptions: No Action valacyclovir 1 gram tablet 1,000 mg PO DAILY PRNQty: 20 0RF thiamine HCl (vitamin B1) 100 mg tablet 100 mg PO DAILY Qty: 30 0RF HPI General Mode of arrival: ambulatory . Date/Time Provider Initiated Documentation: 03/31/25 13:53 . Limitations to Documentation: no limitations . Information obtained by: patient . HPI Narrative: HISTORY OF PRESENT ILLNESS Patient with history of alcohol use presents with joint pain, back pain, and changes in bowel habits. Reports pain in wrists, fingers, muscles, and joints for 2 weeks, migrating and intensifying with nightly alcohol consumption. Pain recently spread to lower back, described as constant pressure. Period due in 2 days, but back pain is unusual for premenstrual symptoms. No urinary symptoms. Routine gynecological checkup 2 days ago, STI and tests negative. No unusual rashes, tick bites, or pets at home, but occasionally visits parents with dogs. Consumes alcohol nightly. Hand cramped severely 3 or 4 nights ago. No new medications. Smokes weed and tobacco, no other drugs. No abnormal or decreased sensation in ear or thighs. Not taking thiamine regularly. 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 Received both doses of COVID-19 vaccine, no respiratory issues. Bowel movements decreased from 4-5 times/day to 1-2 times/day. No loss of bowel or bladder control. Related Data Home Medications ?Medication ?Instructions ?Recorded ?Confirmed valacyclovir 1 gram tablet 1,000 mg PO DAILY PRN #20 t abs 04/24/24 03/29/25 thiamine HCl (vitamin B1) 100 mg 100 mg PO DAILY #30 t abs 06/23/24 03/29/25 tablet Previous Rx's ?Medication ?Instructions ?Recorded valacyclovir 1 gram tablet 1,000 mg PO DAILY PRN #20 t abs 04/24/24 thiamine HCl (vitamin B1) 100 mg 100 mg PO DAILY #30 t abs 06/23/24 tablet Allergies Allergy/AdvReac Type Severity Reaction Status Date / Time fentanyl Allergy Unknown Unknown Verified 03/29/25 13:52 iodine Allergy Hives Unverified 03/29/25 13:53 shellfish derived Allergy Anaphylaxis Verified 03/29/25 13:52 oxycodone AdvReac Unknown Other (See Verified 03/29/25 13:52 Comment) General Stated Complaint: GenMedical JULIUS: 4 Review of Systems All systems reviewed & are unremarkable except as noted in HPI and below Constitutional Constitutional: Reports body ache(s) and Denies fever(s) Cardiovascular Cardiovascular: Denies chest pain Respiratory Respiratory: Denies cough Gastrointestinal Gastrointestinal: Denies abdominal pain Genitourinary Genitourinary: Reports as per HPI Musculoskeletal Musculoskeletal: Reports as per HPI Exam Const General: cooperative and no acute distress HENMT Mouth: moist mucous membranes Eyes Conjunctivae: normal conjunctivae Sclera: normal sclerae Resp Auscultation: clear to auscultation bilaterally, no rales, no rhonchi and no wheezes Cardio Rate: regular rate and not tachycardic Rhythm: regular rhythm GI Palpation: soft, not firm, no guarding, no masses, not rigid and nontender Back/Spine/Pelvis Back: No CVA tenderness, No erythema and No warmth Cervical Spine: No step off deformity Thoracic/Lumbar Spine: paraspinal tenderness (bilateral upper lumbar), No thoracic spinal tenderness and No lumbar spinal tenderness Skin General skin exam: no rashes or lesions noted Neuro General: patient alert, patient awake and tone normal Cognition: normal cognition Speech: speech normal Gait: normal gait Motor: strength 5/5 throughout Sensory Exam: no sensory deficits noted Other: no saddle anesth Extrem General: no edema Psych Appearance: grossly normal Mental Status: mental status grossly normal Course Vital Signs Vital signs: Vital Signs Temperature 37.1 C 03/31/25 13:37 Pulse 86 03/31/25 13:37 Respiratory Rate 16 03/31/25 13:37 Blood Pressure 130/92 H 03/31/25 13:37 Pulse Oximetry 98 03/31/25 13:37 Temperature 37.1 C 03/31/25 13:37 Pulse 86 03/31/25 13:37 Respiratory Rate 16 03/31/25 13:37 Blood Pressure 130/92 H 03/31/25 13:37 Pulse Oximetry 98 03/31/25 13:37 Pain Level 5 03/31/25 13:37 Lab/Test Results Lab/Test Results: POC- Test(urine) Negative Medical Decision Making ASSESSMENT AND PLAN Initial Assessment: Joint pain and back pain with history of alcohol use, possible menstrual cycle- related changes, and IBS symptoms. Differential Diagnosis: - Gout: Alcohol consumption, predisposed. Unlikely due to migratory nature. Basic labs, check electrolytes. - Musculoskeletal pain: Likely cause. Lidocaine patch, Tylenol or ibuprofen. - Menstrual cycle-related changes: Possible. Monitor symptoms. - Tickborne disease: Unlikely. Test for tickborne diseases. ED Course: - Lidocaine patch applied to lower back. - Tylenol administered. - Basic labs checked for electrolyte abnormalities. CK to assess for rhabdomyolysis. - Blood sent for tickborne disease testing. Assessment at time of signout: Joint and back pain likely musculoskeletal, associated with alcohol use and menstrual cycle. IBS symptoms exacerbated by lactose intolerance. Disposition: Pending workup and reassessment. Patient Education: Take thiamine regularly. Avoid alcohol. Monitor symptoms. This document was written with the assistance of MARTHA Onofre. The patient consented to its use. PFSH All Active Problems Overweight (Acute) Social History Smoking/Tobacco Use Status: Current every day Tobacco Type: cigarettes Smoking risk assessment performed?: Yes Alcohol Intake: current Alcohol Intake frequency: 0-2 drinks per day Drug use: Daily Substance use type: marijuana Do you feel safe at home: Yes Do you feel safe in your relationship?: Yes Female Reproductive History Menstrual Age of Menarche: 13
[2025-03-31] MEDS: Acetaminophen 325 MG TAB 650 MG PO (15:49)
[2025-03-31] MEDS: Lidocaine 5% Patch 1 PATCH TP (15:50)
[2025-03-31 16:05] VITALS: BP 141/69; PULSE 77; O2SAT 92
[2025-03-31 16:08] VITALS: BP 141/69; PULSE 77; RESP 16; TEMP 37.1; O2SAT 92
[2025-03-31 16:11] LABS: Abs Immature Grans 0.07 10^3/uL (0.0-0.06); HCT 49.0 % (36.0-46.0); HGB 17.0 g/dL (11.2-15.7); Immature Grans % 0.8 %; MCH 31.7 pg (27.0-33.0); MCHC 34.7 % (32.0-36.0); MCV 91 fL (80-95); MPV 10.7 fL (8.0-11.0); Platelet Count 189 10^3/uL (130-400); RBC 5.36 10^6/uL (3.93-5.22); RDW 12.7 % (11.7-14.6); RDW-SD 42.6 fL; WBC 9.01 10^3/uL (4.4-10.8)
[2025-03-31 16:29] LABS: ALT 17 U/L (14-59); AST 13 U/L (15-37); Albumin 3.8 g/dL (3.4-5.0); Alkaline Phosphatase 72 U/L (46-116); Anion Gap 9.0 mmol/L (3-11); BUN 7 mg/dL (7-18); Bilirubin, Total 0.7 mg/dL (0.2-1.0); CO2 27.0 mmol/L (21.0-32.0); Calcium 9.4 mg/dL (8.5-10.1); Chloride 102 mmol/L (98-107); Creatine Kinase 24 U/L (26-192); Estimated GFR 130.88 (mL/min/1.73m2); Glucose 89 mg/dL (74-106); Magnesium 1.6 mg/dL (1.8-2.4); Potassium 3.8 mmol/L (3.5-5.1); Sodium 138 mmol/L (136-145); Total Protein 7.8 g/dL (6.4-8.2)
[2025-04-03 11:16] LABS: Lyme Ab w Rflx to Lyme Confirm Negative (Negative)
[2025-04-04 23:23] LABS: B. miyamotoi PCR Negative (Negative); Babesia divergens/MO-1 Negative (Negative); Ehrlichia muris eauclairensis Negative (Negative)
== END 2025-03-31 16:00 | disposition left against medical advice (07) ==
PROVIDERS: Emergency Provider Student in an Organized Health Care Education/Training Program; PCP Obstetrics & Gynecology Gynecology
DX: M54.50 Low back pain, unspecified (principal); Z53.29 Procedure and treatment not carried out because of patient's decision for other reasons; F10.90 Alcohol use, unspecified, uncomplicated; M25.59 Pain in other specified joint
CPT/HCPCS: 99283 ×2; 81025; 36415; 80053; 82550; 87798; 83735; 85025; 86618

== ENCOUNTER 2025-04-05 13:22 | Outpatient (CLI) | payer MEDICAID, SELFPAY ==
--- NOTE | 2025-04-05 | DI.RAD_ITS ---
Exam(s) XR LUMBAR SPINE COMPLETE EXAM: XR LUMBAR SPINE COMPLETE CLINICAL HISTORY: LOW BACK PAIN,M54.50. TECHNIQUE: 2D digital imaging was performed. COMPARISON: No exams were available for comparison FINDINGS: Five views No evidence of fracture, listhesis, nor pars interarticularis defects. All the disc spaces exhibit normal height. Facet joints appear unremarkable. There is no scoliosis. Sacroiliac joints appear unremarkable. No osseous lesions. IMPRESSION: No significant radiograph findings on these five views of the lumbosacral spinal column. DATA REPOSITORY: RADIATION DOSE DELIVERED:
--- NOTE | 2025-04-05 16:48 | DI.VRAD_ITS ---
PROCEDURE INFORMATION: Exam: XR Lumbosacral Spine Exam date and time: 04/05/2025 4:04 PM Age: 19 years old Clinical indication: Lbp TECHNIQUE: Imaging protocol: Radiologic exam of the lumbosacral spine. Views: 4 or 5 views. COMPARISON: No relevant prior studies available. FINDINGS: Bones/joints: No acute fracture. Normal alignment. Soft tissues: Unremarkable. IMPRESSION: No acute findings. Dictated and Authenticated by: Sarika Souza MD. Orderin Raymond Nathan MD
== END 2025-04-05 13:42 ==
LOC: DI 05-19 13:22
PROVIDERS: PCP Obstetrics & Gynecology Gynecology; Visit Provider Physician Assistant Medical
DX: M54.50 Low back pain, unspecified (principal)
CPT/HCPCS: 72110

== ENCOUNTER 2025-04-05 21:22 | Outpatient (REF) | payer MEDICAID, SELFPAY ==
[2025-04-05 21:54] LABS: ESR 14 mm/hr (0-20)
[2025-04-05 22:17] LABS: C-Reactive Protein < 0.50 mg/dL (<or=0.5)
== END 2025-04-05 21:23 | disposition home or self-care (01) ==
LOC: NCHCN 21:22
PROVIDERS: PCP Obstetrics & Gynecology Gynecology; Visit Provider Physician Assistant Medical
DX: M54.50 Low back pain, unspecified (principal)
CPT/HCPCS: 85652; 86038; 86140; 86431

== ENCOUNTER 2025-05-04 14:16 | Outpatient (REF) | payer MEDICAID, SELFPAY ==
[2025-05-04 19:05] LABS: Abs Immature Grans 0.07 10^3/uL (0.0-0.06); HCT 48.5 % (36.0-46.0); HGB 16.4 g/dL (11.2-15.7); Immature Grans % 0.7 %; MCH 31.4 pg (27.0-33.0); MCHC 33.8 % (32.0-36.0); MCV 93 fL (80-95); MPV 11.0 fL (8.0-11.0); Platelet Count 209 10^3/uL (130-400); RBC 5.22 10^6/uL (3.93-5.22); RDW 13.3 % (11.7-14.6); RDW-SD 45.0 fL; WBC 9.97 10^3/uL (4.4-10.8)
[2025-05-04 19:24] LABS: ALT 16 U/L (14-59); AST 10 U/L (15-37); Albumin 3.6 g/dL (3.4-5.0); Alkaline Phosphatase 84 U/L (46-116); Anion Gap 9.8 mmol/L (3-11); BUN 8 mg/dL (7-18); Bilirubin, Total 0.4 mg/dL (0.2-1.0); CO2 28.2 mmol/L (21.0-32.0); Calcium 9.0 mg/dL (8.5-10.1); Chloride 101 mmol/L (98-107); Estimated GFR 136.76 (mL/min/1.73m2); Glucose 81 mg/dL (74-106); Potassium 3.8 mmol/L (3.5-5.1); Sodium 139 mmol/L (136-145); TSH (W/Ref FT4) 1.12 uIU/mL (0.36-3.74); Total Protein 7.0 g/dL (6.4-8.2)
[2025-05-05 19:15] LABS: Hepatitis A Antibody IgM Negative (Negative); Hepatitis C Ab w Rflx HCV PCR Negative (Negative)
[2025-05-08 11:05] LABS: JO 1 Ab, IgG <0.2 U; RNP Ab, IgG <0.2 U; SS-A/Ro, IgG <0.2 U; SS-B (La) Ab, IgG <0.2 U; Scl 70 Ab, IgG <0.2 U
== END 2025-05-04 14:17 | disposition home or self-care (01) ==
LOC: NCHCN 14:16
PROVIDERS: PCP Obstetrics & Gynecology Gynecology; Visit Provider Nurse Practitioner Family
DX: G89.29 Other chronic pain
CPT/HCPCS: 80053; 86147; 86200; 86704; 86709; 86803; 87340; 84443; 85025; 86038; 86235

== ENCOUNTER 2025-07-08 15:58 | Emergency (ER) | payer MEDICAID, SELFPAY ==
[2025-07-08 16:01] VITALS: BP 150/84; PULSE 84; RESP 16; TEMP 37.1; O2SAT 95
--- NOTE | 2025-07-08 16:18 | ED.GENADUL_ITS ---
Discharge Plan Disposition Patient Disposition: Home Condition: Stable Discharge Details Clinical Impression: Laceration of lower lip Primary Care Provider: Cynthia Man ED Provider: Hailey Swartz Home Meds and New Rx's Prescriptions: No Action valacyclovir 1 gram tablet 1,000 mg PO DAILY PRNQty: 20 0RF thiamine HCl (vitamin B1) 100 mg tablet 100 mg PO DAILY Qty: 30 0RF escitalopram oxalate [Lexapro] 10 mg tablet 10 mg PO DAILY Discharge Instructions Instructions: Mouth and dental injuries in adults, Wound Care ED Additional Instructions: At this time it does appear that the cut is already starting to heal. Please wash your mouth out with salt water after eating or drinking anything. You may apply some ice. Stay away from anything super hot. Please do not smoke for at least the next 30 days if possible. Please take Tylenol or Ibuprofen with food every 4-6 hours as needed for pain and swelling. Please watch for signs of infection including increased swelling, drainage, increased pain or concerns. If this occurs please return to the emergency department. Follow up with primary care provider in 3-5 days. Return to ED sooner if any worsening or concerns. Stand Alone Forms: Portal Information Referrals: Cynthia Man MD [Primary Care Provider, [employer] [facility]PRENTICE] - Return if symptoms worsen Discharge Data Discharge Date/Time-TO BE ENTERED AT DEPARTURE: 07/08/25 16:42 HPI General Mode of arrival: ambulatory . Date/Time Provider Initiated Documentation: 07/08/25 16:00 . Limitations to Documentation: no limitations . Information obtained by: patient, RN notes reviewed and old records reviewed . HPI Narrative: 19-year-old female presents to the ER after being alcohol last night she woke up with a swollen lower lip with an abrasion. She reports that she is here just to make sure it does not get infected. There is no bleeding noted. Her lower teeth are intact she does report some jaw pain but she also states that she has TMJ. Denies any headache blurry vision or C-spine pain. Related Data Home Medications ?Medication ?Instructions ?Recorded ?Confirmed valacyclovir 1 gram tablet 1,000 mg PO DAILY PRN #20 t abs 04/24/24 07/08/25 thiamine HCl (vitamin B1) 100 mg 100 mg PO DAILY #30 t abs 06/23/24 07/08/25 tablet escitalopram oxalate 10 mg tablet 10 mg PO DAILY 07/0807/08/25 (Lexapro) Previous Rx's ?Medication ?Instructions ?Recorded valacyclovir 1 gram tablet 1,000 mg PO DAILY PRN #20 t abs 04/24/24 thiamine HCl (vitamin B1) 100 mg 100 mg PO DAILY #30 t abs 06/23/24 tablet Allergies Allergy/AdvReac Type Severity Reaction Status Date / Time fentanyl Allergy Unknown Unknown Verified 07/08/25 16:08 iodine Allergy Hives Unverified 07/08/25 16:08 shellfish derived Allergy Anaphylaxis Verified 07/08/25 16:08 oxycodone AdvReac Unknown Other (See Verified 07/08/25 16:08 Comment) General Stated Complaint: Laceration JULIUS: 4 Review of Systems Constitutional Constitutional: Denies headache(s) ENT Ears, Nose, Mouth, and Throat: Reports as per HPI, Denies dental pain, Denies dysphagia, Denies headache(s), Reports lip swelling, Denies epistaxis, Denies mouth pain and Denies neck pain Gastrointestinal Gastrointestinal: Denies dysphagia Musculoskeletal Musculoskeletal: Denies neck pain Neurologic Neurologic: Denies headache(s) Allergic/Immunologic Allergic/Immunologic: Reports lip swelling Exam [facility] Head: normal to inspection, normocephalic and atraumatic General nose exam: external nose normal and nares normal Face and sinus: sinuses nontender and face symmetric Face images: 2 1. Superficial abrasion Mouth: oral mucosae normal, lip abnormal right lower swelling and mouth trauma Mouth/tongue images: 2 1. Small superficial abrasion which appears to already beginning to heal, bleeding controlled Teeth and gingiva: dentition normal Course Vital Signs Vital signs: Vital Signs Temperature 37.1 C 07/08/25 16:01 Pulse 84 07/08/25 16:01 Respiratory Rate 16 07/08/25 16:01 Blood Pressure 150/84 H 07/08/25 16:01 Pulse Oximetry 95 07/08/25 16:01 Temperature 37.1 C 07/08/25 16:01 Temperature Source Oral 07/08/25 16:01 Pulse 84 07/08/25 16:01 Respiratory Rate 16 07/08/25 16:01 Blood Pressure 150/84 H 07/08/25 16:01 Blood Pressure Position Sitting 07/08/25 16:01 Pulse Oximetry 95 07/08/25 16:01 Oxygen Delivery Method Room Air 07/08/25 16:01 Oxygen Flow Rate 0 07/08/25 16:01 Medical Decision Making 19-year-old female presents to the ER after being alcohol last night she woke up with a swollen lower lip with an abrasion. She reports that she is here just to make sure it does not get infected. I did discuss home care with her including to rinse out her mouth with salt water after eating or drinking anything . I also discussed to abstain from smoking for the next few days at least, Tylenol ibuprofen and ice to the area. I discussed signs of infection including increased swelling, drainage redness and tenderness. She verbalized understanding. Patient discharged in hemodynamically stable condition. This text was generated using [employer] dictation system, please disregard any oddities of phrase or misspellings. PFSH All Active Problems (Updated 07/08/25 @ 16:22 by Hailey Swartz NP) Laceration of lower lip (Acute) Overweight (Acute) Social History Smoking/Tobacco Use Status: Current every day Tobacco Type: cigarettes Smoking risk assessment performed?: Yes Alcohol Intake: current Alcohol Intake frequency: 0-2 drinks per day Alcohol type: hard liquor Drug use: Daily Substance use type: marijuana Do you feel safe at home: Yes Do you feel safe in your relationship?: Yes Female Reproductive History Menstrual Age of Menarche: 13 PAWSS Have you Been Recently Intoxicated or Drunk Within the Last 30 days?: No Have you Ever Experienced Previous Episodes of Alcohol Withdrawal?: Yes Have you ever Experienced Withdrawal Seizures?: Yes Have you ever Experienced Delirium Tremens(DT)s?: No Have you ever undergone Alcohol Rehabilitation Treatment (i.e, inpt ot outpatient treatment programs)?: No Have you ever Experienced Blackouts?: Yes Have you ever Combined Alcohol with other Downers within the last 90 days?: No Have you ever Combined Alcohol with any other Substance of Abuse during the last 90 days?: Yes Positive Blood Alcohol level on Presentation? [PCS.BAL]: No Evidence of Increased Autonomic Activity (i.e. HR>120, tremor, sweating, agitation, nausea)?: No Result: 5
== END 2025-07-08 16:42 | disposition home or self-care (01) ==
LOC: ER 16:35
PROVIDERS: Emergency Provider Registered Nurse Emergency; PCP Obstetrics & Gynecology Gynecology
DX: S01.511A Laceration without foreign body of lip, initial encounter (principal); X58.XXXA Exposure to other specified factors, initial encounter
CPT/HCPCS: 99282 ×2

== ENCOUNTER → 2025-07-15 14:25 | Outpatient (CLI) | payer MEDICAID, SELFPAY ==
--- NOTE | 2025-07-15 | DI.RAD_ITS ---
Exam(s) XR NASAL BONES EXAM: XR NASAL BONES CLINICAL HISTORY: TECHNIQUE: 2D digital imaging was performed. COMPARISON: No exams were available for comparison FINDINGS: 3 views There is possible subtle nondisplaced fracture on the left side of the nasal bones. IMPRESSION: Possible subtle nondisplaced left side nasal bone fracture. DATA REPOSITORY: RADIATION DOSE DELIVERED:
--- NOTE | 2025-07-15 15:37 | DI.VRAD_ITS ---
PROCEDURE INFORMATION: Exam: XR Nasal Bones Exam date and time: 07/15/2025 2:55 PM Age: 19 years old Clinical indication: Other: Injury of nasal bones TECHNIQUE: Imaging protocol: XR of the nasal bones. Views: Minimum of 3 views COMPARISON: No relevant prior studies available. FINDINGS: Paranasal sinuses: Well aerated. Bones/joints: There appears to be a subtle left-sided nasal fracture. There is no significant displacement. Soft tissues: Unremarkable. IMPRESSION: Probable left-sided nasal fracture. Dictated and Authenticated by: Ina Kidd MD. Orderin Raymond Nathan MD
== END ==
LOC: DI 14:28
PROVIDERS: PCP Obstetrics & Gynecology Gynecology; Referring Provider Physician Assistant Medical; Visit Provider Physician Assistant Medical
DX: S09.92XA Unspecified injury of nose, initial encounter (principal); X58.XXXA Exposure to other specified factors, initial encounter
CPT/HCPCS: 70160